=== PATIENT | female | born 2000 | race Caucasian/White ===

== ENCOUNTER 2018-06-26 14:18 | Outpatient (REF) | payer OTHER, SELFPAY ==
[2018-06-26 20:12] LABS: TSH 1.16 uIU/mL (0.358-3.74)
== END 2018-06-26 14:19 ==
LOC: NCHCN 14:18
PROVIDERS: PCP Physician Assistant Medical; Visit Provider Physician Assistant Medical
DX: F41.9 Anxiety disorder, unspecified (principal); F33.9 Major depressive disorder, recurrent, unspecified
CPT/HCPCS: 84443